=== PATIENT | male | born 1960 | race Caucasian/White ===

== ENCOUNTER 2019-11-26 20:15 | Emergency (ER) | payer MEDICARE, MEDICAID ==
[~2019-11-26] VITALS: Ht 182.9 cm; Wt 82.0 kg
[2019-11-26 20:50] VITALS: BP 156/83
== END 2019-11-26 22:56 | disposition home or self-care (01) ==
LOC: ER 20:15
DX: R68.89 Other general symptoms and signs (principal)
CPT/HCPCS: 99281